=== PATIENT | female | born 1970 | race Caucasian/White ===

== ENCOUNTER 2017-12-04 20:04 | Emergency (ER) | payer OTHER ==
[~2017-12-04] VITALS: Ht 162.6 cm; Wt 117.9 kg
[~2017-12-04 20:04] MED LIST: ACET325 PO; ALBIPROI; ALBU90OI INH; ALBU90OI6 INH; ALPR.25 PO; AMIT10 PO; AMIT25 PO; AMOX500 PO; ARIP10 PO; AZIT250 PO; BENZ100A PO; BIRTH CONTROL PILLS; BUDE6HFA; BUPR75; BUSP15 PO; CEPH500 PO; CIPR500 PO; CYCL10; CYCL10 PO; Cleocin HCl150 MG PO; DOXY100 PO; Desyrel150 MG PO; ETOD400 PO; FLUSAL2505; FLUT.05NI; GABA100 PO; GABA300 PO; GABA800 PO; HYDHCL25; HYDSUL200 PO; IBUP800 PO; IMIP10 PO; K-Dur20 MEQ PO; LACT10SY PO; LEVO750 PO; LEVSOD112 PO; LEVSOD125; LEVSOD125 PO; LEVSOD175 PO; LISHYD1012 PO; LORA.5 PO; LORA2 PO; Lasix20 MG PO; MAGCIT300 PO; MECL12.5 PO; MECL25 PO; METF500; METF500 PO; METF850; METH5 PO; MINOIL PR; Mobic15 MG PO; NAPR500 PO; OXYACE5C; OXYACE5T PO; OXYC10ER PO; PRED20 PO; PROM25 PO; PROM25S PR; Percocet 5-3251 EACH PO; Prednisone20 MG PO; Prilosec20 MG PO; SERT100 PO; SERT25 PO; SULTRIDS PO; TIOT18; TRAM50 PO; WELBUTRIN; Zithromax250 MG PO; [UNRECOGNIZED DRUG - REMARK]
[2018-06-16] MEDS ORDERED: Cipro500 MG PO (20:52)
[2018-06-16] MEDS ORDERED: Zofran Odt4 MG PO (20:52)
[2018-09-19] MEDS ORDERED: HYDHCL25 PO (19:51)
== END 2017-12-04 22:19 | disposition home or self-care (01) ==
LOC: ER 20:04
DX: G89.29 Other chronic pain (principal); M54.5 Low back pain; Z88.5 Allergy status to narcotic agent; Z79.899 Other long term (current) drug therapy; F32.9 Major depressive disorder, single episode, unspecified; E03.9 Hypothyroidism, unspecified; J44.9 Chronic obstructive pulmonary disease, unspecified; F17.210 Nicotine dependence, cigarettes, uncomplicated
CPT/HCPCS: 96372; 99283; J1170; J1885

== ENCOUNTER 2018-06-08 21:37 | Emergency (ER) | payer OTHER ==
[~2018-06-08] VITALS: Ht 162.6 cm; Wt 113.4 kg
[2018-06-08 22:03] LABS: Source, Urine Clean Catch
[2018-06-08] MEDS ORDERED: OXYC10TA19 (22:04)
[2018-06-08] MEDS ORDERED: VARE1 PO (22:05)
[2018-06-08] MEDS ORDERED: BUSP10 PO (22:05)
[2018-06-08] MEDS ORDERED: DULO60 (22:06)
[2018-06-08] MEDS ORDERED: ALPR.5 PO (22:07)
[2018-06-08] MEDS ORDERED: PLAQUENIL200 MG PO (22:07)
[2018-06-08] MEDS ORDERED: CYCL10 PO (22:08)
[2018-06-08 22:16] LABS: Appearance, Urine Hazy (Clear); Bilirubin, Urine Neg (Neg); Blood, Urine 3+ (Neg); Color, Urine Yellow (P-Yellow); Glucose Qualitative, Urine Neg (Neg); Ketones, Urine Neg (Neg); Leukocyte Esterase, Urine 1+ (Neg); Nitrite, Urine Pos (Neg); Protein, Urine 2+ (Neg); Urobilinogen, Urine 1+ (Normal); pH, Urine 6.5 (5.0-8.0)
[2018-06-08 22:27] LABS: Bacteria Many /hpf; Squamous Epithelial Cells Few /hpf (Few)
[2018-06-08] MEDS ORDERED: IBUP600 PO (22:55)
[2018-06-08] MEDS ORDERED: CEPH500 PO (22:55)
== END 2018-06-08 23:54 | disposition home or self-care (01) ==
LOC: ER 21:37
PROVIDERS: Emergency Medicine
DX: N12 Tubulo-interstitial nephritis, not specified as acute or chronic (principal); F32.9 Major depressive disorder, single episode, unspecified; E03.9 Hypothyroidism, unspecified; F17.210 Nicotine dependence, cigarettes, uncomplicated; Z79.899 Other long term (current) drug therapy
CPT/HCPCS: 81001; 87077; 87086; 87186; 96361; 96374; 99283-25; J0696; J1885; J7030

== ENCOUNTER 2018-06-15 18:28 | Emergency (ER) | payer OTHER ==
[~2018-06-15] VITALS: Ht 162.6 cm; Wt 113.4 kg
[~2018-06-15 18:28] MED LIST changes: +ALPR.5 PO; +BUSP10 PO; +DULO60; +IBUP600 PO; +OXYC10TA19; +PLAQUENIL200 MG PO; +VARE1 PO
[2018-06-15 20:00] LABS: BASOPHILS ABSOLUTE AUTO 0.06 K/mm3 (0.00-0.23); BASOPHILS PERCENT AUTO 1 % (0-2); EOSINOPHILS ABSOLUTE AUTO 0.27 K/mm3 (0.00-0.68); EOSINOPHILS PERCENT AUTO 3 % (0-6); Hematocrit 41.6 % (33.0-51.0); Hemoglobin 13.5 g/dL (11.5-16.0); IMMATURE GRAN ABSOLUTE AUTO 0.04 K/mm3 (0.00-0.10); IMMATURE GRAN PERCENT AUTO 0 % (0-1); LYMPHOCYTES PERCENT AUTO 21 % (21-46); MONOCYTES ABSOLUTE AUTO 0.78 K/mm3 (0.16-1.47); MONOCYTES PERCENT AUTO 7 % (4-13); Mean Corpuscular HGB 30.3 pg (26.0-34.0); Mean Corpuscular HGB Conc 32.5 g/dL (31.5-36.5); Mean Corpuscular Volume 93 fL (80-100); NEUTROPHILS ABSOLUTE AUTO 7.38 K/mm3 (1.96-9.15); NEUTROPHILS PERCENT AUTO 69 % (41-73); Platelet Count 383 K/mm3 (150-400); RDW Coefficient Variation 15.3 % (11.7-14.2); RDW Standard Deviation 53.1 fL (35.1-46.3); Red Blood Cell Count 4.46 M/mm3 (3.80-5.20); White Blood Cell Count 10.73 K/mm3 (4.00-11.30)
[2018-06-15 20:21] LABS: Alanine Aminotransfer (ALT/SGP 31 U/L (12-78); Albumin, Blood 3.8 g/dL (3.4-5.0); Albumin/Globulin Ratio 0.8 (0.8-1.8); Alk Phos 73 U/L (50-136); Anion Gap 7 mmol/L (6-16); Aspartate Aminotrans (AST/SGOT 35 U/L (12-37); Bilirubin, Total 0.6 mg/dL (0.1-1.0); Blood Urea Nitrogen 11 mg/dL (8-24); Bun/Creatinine Ratio 23.1 (12.0-20.0); CO2, Blood 25 mmol/L (21-32); Calcium, Blood 8.6 mg/dL (8.5-10.1); Chloride, Blood 106 mmol/L (98-108); Creatinine, Blood 0.48 mg/dL (0.40-1.00); Globulin, Blood 4.5 g/dL (2.2-4.0); Glomerular Filtration Rate >60 (60-); Glucose, Blood 85 mg/dL (70-99); Potassium, Blood 4.5 mmol/L (3.5-5.5); Sodium, Blood 138 mmol/L (136-145); Total Protein, Blood 8.3 g/dL (6.4-8.2)
[2018-06-16] MEDS ORDERED: Zofran Odt4 MG PO (20:52)
[2018-06-16] MEDS ORDERED: Cipro500 MG PO (20:52)
== END 2018-06-15 20:54 | disposition left against medical advice (07) ==
LOC: ER 18:28
PROVIDERS: Emergency Medicine
DX: Z53.21 Procedure and treatment not carried out due to patient leaving prior to being seen by health care provider (principal)
CPT/HCPCS: 36415; 80053; 83690; 85025

== ENCOUNTER 2019-10-22 23:21 | Emergency (ER) | payer BC ==
[~2019-10-22] VITALS: Ht 162.6 cm; Wt 133.8 kg
[~2019-10-22 23:21] MED LIST changes: +Cipro500 MG PO; +HYDHCL25 PO; +Zofran Odt4 MG PO
[2019-10-22] MEDS ORDERED: DICL75ER PO (23:37)
[2019-10-22] MEDS ORDERED: HYDSUL200 (23:38)
[2019-10-22] MEDS ORDERED: BUSP10 PO (23:38)
[2019-10-22] MEDS ORDERED: BUPR150ER (23:38)
[2019-10-22] MEDS ORDERED: METF500 PO (23:38)
[2019-10-23] MEDS ORDERED: CEFP200 PO (00:42)
== END 2019-10-23 00:50 | disposition home or self-care (01) ==
LOC: ER 23:21
DX: S61.212A Laceration without foreign body of right middle finger without damage to nail, initial encounter (principal); E03.9 Hypothyroidism, unspecified; F17.210 Nicotine dependence, cigarettes, uncomplicated; Z88.8 Allergy status to other drugs, medicaments and biological substances; Z88.5 Allergy status to narcotic agent; Z79.899 Other long term (current) drug therapy; Z79.84 Long term (current) use of oral hypoglycemic drugs; Z79.51 Long term (current) use of inhaled steroids; X58.XXXA Exposure to other specified factors, initial encounter
CPT/HCPCS: 99282; A9270-GY

== ENCOUNTER 2020-08-25 12:08 | Emergency (ER) | payer BC ==
[~2020-08-25] VITALS: Ht 162.6 cm; Wt 127.0 kg
[~2020-08-25 12:08] MED LIST changes: +BUPR150ER; +CEFP200 PO; +DICL75ER PO; +HYDSUL200
[2020-08-25 12:48] LABS: BASOPHILS ABSOLUTE AUTO 0.07 K/mm3 (0.00-0.23); BASOPHILS PERCENT AUTO 1 % (0-2); EOSINOPHILS ABSOLUTE AUTO 0.25 K/mm3 (0.00-0.68); EOSINOPHILS PERCENT AUTO 3 % (0-6); Hematocrit 42.1 % (33.0-51.0); Hemoglobin 12.8 g/dL (11.5-16.0); IMMATURE GRAN ABSOLUTE AUTO 0.09 K/mm3 (0.00-0.10); IMMATURE GRAN PERCENT AUTO 1 % (0-1); LYMPHOCYTES PERCENT AUTO 14 % (21-46); MONOCYTES ABSOLUTE AUTO 0.63 K/mm3 (0.16-1.47); MONOCYTES PERCENT AUTO 7 % (4-13); Mean Corpuscular HGB 28.4 pg (26.0-34.0); Mean Corpuscular HGB Conc 30.4 g/dL (31.5-36.5); Mean Corpuscular Volume 94 fL (80-100); Mean Platelet Volume 9.8 fL (9.1-12.4); NEUTROPHILS ABSOLUTE AUTO 7.05 K/mm3 (1.96-9.15); NEUTROPHILS PERCENT AUTO 75 % (41-73); Platelet Count 388 K/mm3 (150-400); RDW Coefficient Variation 13.4 % (11.7-14.2); RDW Standard Deviation 46.8 fL (35.1-46.3); White Blood Cell Count 9.39 K/mm3 (4.00-11.30)
[2020-08-25 13:14] LABS: Alanine Aminotransfer (ALT/SGP 28 U/L (12-78); Albumin, Blood 3.9 g/dL (3.4-5.0); Alk Phos 78 U/L (50-136); Anion Gap 7 mmol/L (6-16); Aspartate Aminotrans (AST/SGOT 25 U/L (12-37); Bilirubin, Total 0.5 mg/dL (0.1-1.0); Blood Urea Nitrogen 14 mg/dL (8-24); Bun/Creatinine Ratio 20.7 (12.0-20.0); CO2, Blood 24 mmol/L (21-32); Calcium, Blood 9.1 mg/dL (8.5-10.1); Chloride, Blood 107 mmol/L (98-108); Creatinine, Blood 0.68 mg/dL (0.40-1.00); Globulin, Blood 4.1 g/dL (2.2-4.0); Glomerular Filtration Rate >60 (60-); Glucose, Blood 88 mg/dL (70-99); Potassium, Blood 4.5 mmol/L (3.5-5.5); Sodium, Blood 138 mmol/L (136-145); Troponin I <0.015 ng/mL (0.000-0.040)
[2020-08-25] MEDS ORDERED: Prednisone20 MG PO (16:05)
[2020-08-27 15:25] LABS: CORONAVIRUS (COVID19) CSH-NRL Negative (Negative)
== END 2020-08-25 16:25 | disposition home or self-care (01) ==
LOC: ER 12:08
PROVIDERS: Emergency Medicine; Physician Assistant
DX: J06.9 Acute upper respiratory infection, unspecified (principal); R07.89 Other chest pain; Z79.84 Long term (current) use of oral hypoglycemic drugs; Z20.828 Contact with and (suspected) exposure to other viral communicable diseases; Z79.899 Other long term (current) drug therapy
CPT/HCPCS: 36415; 71045; 80053; 84484; 85025; 93005; 93010; 99285-25; U0003

== ENCOUNTER 2021-06-04 13:25 | Emergency (ER) | payer BC ==
[~2021-06-04] VITALS: Ht 162.6 cm; Wt 127.0 kg
[2021-06-04 14:09] LABS: BASOPHILS ABSOLUTE AUTO 0.07 K/mm3 (0.00-0.23); BASOPHILS PERCENT AUTO 1 % (0-2); EOSINOPHILS ABSOLUTE AUTO 0.23 K/mm3 (0.00-0.68); EOSINOPHILS PERCENT AUTO 2 % (0-6); Hematocrit 36.6 % (33.0-51.0); Hemoglobin 10.8 g/dL (11.5-16.0); IMMATURE GRAN ABSOLUTE AUTO 0.03 K/mm3 (0.00-0.10); IMMATURE GRAN PERCENT AUTO 0 % (0-1); LYMPHOCYTES ABSOLUTE AUTO 1.48 K/mm3 (0.84-5.20); LYMPHOCYTES PERCENT AUTO 15 % (21-46); MONOCYTES ABSOLUTE AUTO 0.82 K/mm3 (0.16-1.47); MONOCYTES PERCENT AUTO 9 % (4-13); Mean Corpuscular HGB 24.3 pg (26.0-34.0); Mean Corpuscular HGB Conc 29.5 g/dL (31.5-36.5); Mean Corpuscular Volume 82 fL (80-100); Mean Platelet Volume 9.3 fL (9.1-12.4); NEUTROPHILS ABSOLUTE AUTO 7.02 K/mm3 (1.96-9.15); NEUTROPHILS PERCENT AUTO 73 % (41-73); Platelet Count 504 K/mm3 (150-400); RDW Coefficient Variation 15.9 % (11.7-14.2); RDW Standard Deviation 47.1 fL (35.1-46.3); Red Blood Cell Count 4.45 M/mm3 (3.80-5.20); White Blood Cell Count 9.65 K/mm3 (4.00-11.30)
[2021-06-04 14:32] LABS: Alanine Aminotransfer (ALT/SGP 46 U/L (12-78); Alk Phos 74 U/L (50-136); Anion Gap 7 mmol/L (6-16); Aspartate Aminotrans (AST/SGOT 29 U/L (12-37); Bilirubin, Total 0.3 mg/dL (0.1-1.0); Blood Urea Nitrogen 13 mg/dL (8-24); Bun/Creatinine Ratio 16.1 (12.0-20.0); CO2, Blood 21 mmol/L (21-32); Calcium, Blood 8.7 mg/dL (8.5-10.1); Chloride, Blood 110 mmol/L (98-108); Creatinine, Blood 0.81 mg/dL (0.40-1.00); Globulin, Blood 4.2 g/dL (2.2-4.0); Glomerular Filtration Rate >60 (60-); Glucose, Blood 97 mg/dL (70-99); Potassium, Blood 4.1 mmol/L (3.5-5.5); Sodium, Blood 138 mmol/L (136-145); Total Protein, Blood 8.2 g/dL (6.4-8.2); Troponin I <0.015 ng/mL (0.000-0.040)
== END 2021-06-04 15:34 | disposition home or self-care (01) ==
LOC: ER 13:25
PROVIDERS: Physician Assistant
DX: I10 Essential (primary) hypertension (principal); R07.89 Other chest pain; F17.290 Nicotine dependence, other tobacco product, uncomplicated; E03.9 Hypothyroidism, unspecified; Z88.8 Allergy status to other drugs, medicaments and biological substances; Z88.5 Allergy status to narcotic agent
CPT/HCPCS: 0031A; 36415; 71046; 80053; 83690; 83880; 84484; 85025; 91303; 93005; 93010; 99284-25

== ENCOUNTER → 2021-08-24 | Outpatient (CLI) | payer BC ==
[2021-08-25 09:04] LABS: U Amphetamine Screen Not Detected; U Barbituate Screen Not Detected; U Benzodiazapine Screen Not Detected; U Buprenorphine Screen Not Detected; U Cannabinoids Screen Not Detected; U Cocaine Screen Not Detected; U Methadone Screen Not Detected; U Methamphetamine Screen Not Detected; U Opiates Screen Not Detected; U Oxycodone Screen Not Detected; U Phencyclidine Screen Not Detected; U Propoxyphene Screen Not Detected
== END | disposition home or self-care (01) ==
LOC: LAB SHORT 17:15
PROVIDERS: Family Medicine
DX: M51.9 Unspecified thoracic, thoracolumbar and lumbosacral intervertebral disc disorder (principal)

== ENCOUNTER 2022-01-26 14:18 | Emergency (ER) | payer BC ==
[~2022-01-26] VITALS: Ht 162.6 cm; Wt 126.1 kg
[2022-01-26 14:54] LABS: BASOPHILS ABSOLUTE AUTO 0.08 K/mm3 (0.00-0.23); BASOPHILS PERCENT AUTO 1 % (0-2); EOSINOPHILS ABSOLUTE AUTO 0.05 K/mm3 (0.00-0.68); EOSINOPHILS PERCENT AUTO 0 % (0-6); Hematocrit 33.2 % (33.0-51.0); Hemoglobin 9.6 g/dL (11.5-16.0); IMMATURE GRAN ABSOLUTE AUTO 0.04 K/mm3 (0.00-0.10); IMMATURE GRAN PERCENT AUTO 0 % (0-1); LYMPHOCYTES ABSOLUTE AUTO 0.93 K/mm3 (0.84-5.20); LYMPHOCYTES PERCENT AUTO 8 % (21-46); MONOCYTES ABSOLUTE AUTO 0.61 K/mm3 (0.16-1.47); MONOCYTES PERCENT AUTO 5 % (4-13); Mean Corpuscular HGB 21.8 pg (26.0-34.0); Mean Corpuscular HGB Conc 28.9 g/dL (31.5-36.5); Mean Corpuscular Volume 75 fL (80-100); Mean Platelet Volume 9.5 fL (9.1-12.4); NEUTROPHILS ABSOLUTE AUTO 10.19 K/mm3 (1.96-9.15); NEUTROPHILS PERCENT AUTO 86 % (41-73); Platelet Count 622 K/mm3 (150-400); RDW Standard Deviation 43.7 fL (35.1-46.3); Red Blood Cell Count 4.41 M/mm3 (3.80-5.20)
[2022-01-26 15:22] LABS: Alanine Aminotransfer (ALT/SGP 24 U/L (12-78); Albumin, Blood 4.2 g/dL (3.4-5.0); Albumin/Globulin Ratio 0.9 (0.8-1.8); Alk Phos 89 U/L (50-136); Anion Gap 11 mmol/L (6-16); Aspartate Aminotrans (AST/SGOT 30 U/L (12-37); Bilirubin, Total 0.7 mg/dL (0.1-1.0); Blood Urea Nitrogen 7 mg/dL (8-24); Bun/Creatinine Ratio 10.4 (12.0-20.0); CO2, Blood 23 mmol/L (21-32); Calcium, Blood 9.9 mg/dL (8.5-10.1); Chloride, Blood 105 mmol/L (98-108); Creatinine, Blood 0.67 mg/dL (0.40-1.00); Globulin, Blood 4.6 g/dL (2.2-4.0); Glomerular Filtration Rate >60 (60-); Glucose, Blood 108 mg/dL (70-99); Potassium, Blood 3.5 mmol/L (3.5-5.5); Sodium, Blood 139 mmol/L (136-145); Total Protein, Blood 8.8 g/dL (6.4-8.2)
[2022-01-26 17:56] LABS: Source, Urine Clean Catch
[2022-01-26 17:59] LABS: Appearance, Urine Clear (Clear); Bilirubin, Urine Neg (Neg); Blood, Urine Neg (Neg); Color, Urine Yellow (P-Yellow); Glucose Qualitative, Urine Neg (Neg); Ketones, Urine 2+ (Neg); Leukocyte Esterase, Urine Neg (Neg); Nitrite, Urine Neg (Neg); Protein, Urine 3+ (Neg); Specific Gravity, Urine 1.015 (1.003-1.022); Urobilinogen, Urine NORM (Normal)
[2022-01-26 18:08] LABS: Bacteria Rare /hpf; Red Blood Cells, Urine 0-2 /hpf (0-2); Squamous Epithelial Cells Rare /hpf (Few); White Blood Cells, Urine 0-2 /hpf (0-5)
[2022-01-26] MEDS ORDERED: PANT40 PO (18:13)
[2022-01-26] MEDS ORDERED: CARAFATE1 GM/10 M1 PO (18:13)
== END 2022-01-26 18:33 | disposition home or self-care (01) ==
LOC: ER 14:18
PROVIDERS: Physician Assistant
DX: R11.2 Nausea with vomiting, unspecified (principal); R10.13 Epigastric pain; E03.9 Hypothyroidism, unspecified; Z87.891 Personal history of nicotine dependence; Z88.5 Allergy status to narcotic agent
CPT/HCPCS: 74177; 80053; 81001; 83690; 85025; 96374; 96375; 96376; 99284-25; A9270; C9113; J0780; J1885; J2405; J3010; Q9967

== ENCOUNTER 2022-08-27 21:25 | Emergency (ER) | payer BC ==
[~2022-08-27] VITALS: Ht 162.6 cm; Wt 117.9 kg
[~2022-08-27 21:25] MED LIST changes: +CARAFATE1 GM/10 M1 PO; +PANT40 PO
[2022-08-27] MEDS ORDERED: LISI20 PO (22:54)
[2022-08-27] MEDS ORDERED: Hydroxychloroq200 MG PO (22:54)
[2022-08-27] MEDS ORDERED: HYDHCL25 (22:55)
[2022-08-27] MEDS ORDERED: Neurontin800 MG PO (22:55)
[2022-08-27] MEDS ORDERED: BUSPIRONE HCL10 M6 PO (22:55)
[2022-08-27] MEDS ORDERED: TIZA4 PO (22:56)
[2022-08-27] MEDS ORDERED: HYDCHL25 PO (22:57)
[2022-08-27] MEDS ORDERED: VENLAFAXINE HC225 MG PO (22:57)
[2022-08-27] MEDS ORDERED: SEROQUEL100 MG PO (22:58)
[2022-08-27] MEDS ORDERED: IBUP800 PO (22:59)
== END 2022-08-27 23:30 | disposition home or self-care (01) ==
LOC: ER 21:25
DX: S82.61XA Displaced fracture of lateral malleolus of right fibula, initial encounter for closed fracture (principal); E11.9 Type 2 diabetes mellitus without complications; F17.290 Nicotine dependence, other tobacco product, uncomplicated; W19.XXXA Unspecified fall, initial encounter; Z88.5 Allergy status to narcotic agent; Z88.8 Allergy status to other drugs, medicaments and biological substances
CPT/HCPCS: 73610; 73620

== ENCOUNTER 2022-09-13 11:50 | Day surgery (SDC) | payer BC ==
[~2022-09-13] VITALS: Ht 162.6 cm; Wt 125.4 kg
[~2022-09-13 11:50] MED LIST changes: +BUSPIRONE HCL10 M6 PO; +HYDCHL25 PO; +Hydroxychloroq200 MG PO; +LISI20 PO; +Neurontin800 MG PO; +SEROQUEL100 MG PO; +TIZA4 PO; +VENLAFAXINE HC225 MG PO
[2022-09-13] MEDS ORDERED: Voltaren100 GM (13:01)
[2022-09-13] MEDS ORDERED: METF500 PO (14:33)
[2022-09-13] MEDS ORDERED: ALBU90OI INH (14:35)
--- NOTE | 2022-09-13 15:58 | NUR ---
09/13/22 1558 Kenya Mccurdy PT ON SCHEDULED ANTIBIOTICS
--- NOTE | 2022-09-13 17:49 | NUR ---
Discharge instructions reviewed with patient. Patient verbalizes understanding. Copy given to patient to take home. Discharged via wheelchair to private car for ride home.
== END 2022-09-13 18:03 | disposition home or self-care (01) ==
LOC: ORSCMMR 11:50 → ORD 13:30 → ORSCMMR 18:03
PROVIDERS: Orthopaedic Surgery
PROC: 0QSJ04Z Reposition Right Fibula with Internal Fixation Device, Open Approach (ICD-10-PCS; principal; 2022-09-13 14:00)
DX: S82.841A Displaced bimalleolar fracture of right lower leg, initial encounter for closed fracture (principal); I10 Essential (primary) hypertension; F17.210 Nicotine dependence, cigarettes, uncomplicated; J45.909 Unspecified asthma, uncomplicated; E11.9 Type 2 diabetes mellitus without complications; E03.9 Hypothyroidism, unspecified; E66.01 Morbid (severe) obesity due to excess calories; Z68.42 Body mass index [BMI] 45.0-49.9, adult; Z79.84 Long term (current) use of oral hypoglycemic drugs; Z79.899 Other long term (current) drug therapy
CPT/HCPCS: 82947; A9270; C1713; J0690; J1100; J2250; J2370; J2405; J2704; J3010; J3370; J7120

== ENCOUNTER 2022-09-17 01:56 | Inpatient (IN) | payer BC ==
[~2022-09-17] VITALS: Ht 167.6 cm; Wt 131.0 kg
[~2022-09-17 01:56] MED LIST changes: +EFFEXOR XR150 MG PO; -Neurontin800 MG PO; -VENLAFAXINE HC225 MG PO; +Voltaren100 GM TOP
[2022-09-17 02:45] LABS: Alanine Aminotransfer (ALT/SGP 37 U/L (12-78); Albumin, Blood 2.8 g/dL (3.4-5.0); Albumin/Globulin Ratio 0.7 (0.8-1.8); Alk Phos 76 U/L (50-136); Anion Gap 9 mmol/L (6-16); Aspartate Aminotrans (AST/SGOT 248 U/L (12-37); Bilirubin, Total 0.2 mg/dL (0.1-1.0); Blood Urea Nitrogen 43 mg/dL (8-24); Bun/Creatinine Ratio 24.6 (12.0-20.0); CO2, Blood 24 mmol/L (21-32); Calcium, Blood 7.9 mg/dL (8.5-10.1); Chloride, Blood 105 mmol/L (98-108); Creatinine, Blood 1.75 mg/dL (0.40-1.00); Ethanol (Alcohol), Blood, Med <3 mg/dL; Free Thyroxine 1.95 ng/dL (0.70-1.60); Globulin, Blood 4.1 g/dL (2.2-4.0); Glomerular Filtration Rate 35 (60-); Glucose, Blood 138 mg/dL (70-99); Potassium, Blood 4.9 mmol/L (3.5-5.5); Sodium, Blood 138 mmol/L (136-145); Thyroid Stimulating Hormone 0.344 uIU/mL (0.360-4.800); Total Protein, Blood 6.9 g/dL (6.4-8.2)
[2022-09-17 02:48] LABS: BASOPHILS ABSOLUTE AUTO 0.04 K/mm3 (0.00-0.23); BASOPHILS PERCENT AUTO 0 % (0-2); EOSINOPHILS ABSOLUTE AUTO 0.13 K/mm3 (0.00-0.68); EOSINOPHILS PERCENT AUTO 1 % (0-6); Hematocrit 28.6 % (33.0-51.0); Hemoglobin 8.3 g/dL (11.5-16.0); IMMATURE GRAN ABSOLUTE AUTO 0.11 K/mm3 (0.00-0.10); IMMATURE GRAN PERCENT AUTO 1 % (0-1); LYMPHOCYTES ABSOLUTE AUTO 1.33 K/mm3 (0.84-5.20); LYMPHOCYTES PERCENT AUTO 9 % (21-46); MONOCYTES ABSOLUTE AUTO 1.41 K/mm3 (0.16-1.47); MONOCYTES PERCENT AUTO 10 % (4-13); Mean Corpuscular HGB 24.1 pg (26.0-34.0); Mean Corpuscular Volume 83 fL (80-100); Mean Platelet Volume 8.9 fL (9.1-12.4); NEUTROPHILS ABSOLUTE AUTO 11.26 K/mm3 (1.96-9.15); NEUTROPHILS PERCENT AUTO 79 % (41-73); Platelet Count 438 K/mm3 (150-400); RDW Coefficient Variation 15.2 % (11.7-14.2); RDW Standard Deviation 46.5 fL (35.1-46.3); Red Blood Cell Count 3.45 M/mm3 (3.80-5.20); White Blood Cell Count 14.28 K/mm3 (4.00-11.30)
[2022-09-17 04:27] LABS: Source, Urine Fem Cath
[2022-09-17 04:30] LABS: Bilirubin, Urine Neg (Neg); Blood, Urine 5+ (Neg); Glucose Qualitative, Urine Neg (Neg); Ketones, Urine Neg (Neg); Leukocyte Esterase, Urine Neg (Neg); Nitrite, Urine Neg (Neg); Protein, Urine 2+ (Neg); Urobilinogen, Urine NORM (Normal)
[2022-09-17 05:11] LABS: U Amphetamine Screen Not Detected; U Barbituate Screen Not Detected; U Benzodiazapine Screen Not Detected; U Buprenorphine Screen Not Detected; U Cannabinoids Screen Not Detected; U Cocaine Screen Not Detected; U Methadone Screen Not Detected; U Methamphetamine Screen Not Detected; U Opiates Screen Not Detected; U Oxycodone Screen DETECTED; U Phencyclidine Screen Not Detected; U Propoxyphene Screen Not Detected
[2022-09-17 05:19] LABS: Appearance, Urine Hazy (Clear); Color, Urine Yellow (P-Yellow)
[2022-09-17 05:21] LABS: Amorphous Light (0-Heavy); Bacteria Few /hpf; Hyaline Casts 0-2 /lpf (0-2); Red Blood Cells, Urine 0-2 /hpf (0-2); Squamous Epithelial Cells Few /hpf (Few); White Blood Cells, Urine 0-2 /hpf (0-5)
[2022-09-17] MEDS ORDERED: EUTHYROX125 MCG PO (09:45)
--- NOTE | 2022-09-17 10:34 | NUR ---
ADMIT PT ARRIVED TO ICU 15 VIA ER BED AT 0945. PT IS SOMNOLENT, BUT AROUSABLE TO VERBAL STIMULI. PT QUICKLY FALLS BACK TO SLEEP. VITAL SIGNS STABLE. PT ON 2L O2 NC. PT WITH SOFT CAST TO RIGHT LOWER EXTREMITY. PT IS RESTLESS AND COMPLAINS OF PAIN TRYING TO VOID AT THIS TIME. PT JUST VOIDED WITH BEDPAN RECENTLY. NO FAMILY AT BEDSIDE. WILL CONTINUE TO MONITOR.
[2022-09-17 13:19] LABS: Source, Urine Foley catheter
[2022-09-17 13:28] LABS: Bilirubin, Urine Neg (Neg); Blood, Urine 5+ (Neg); Color, Urine Yellow (P-Yellow); Glucose Qualitative, Urine Neg (Neg); Ketones, Urine Neg (Neg); Leukocyte Esterase, Urine Neg (Neg); Nitrite, Urine Neg (Neg); Protein, Urine 2+ (Neg); Urobilinogen, Urine NORM (Normal)
[2022-09-17 14:16] LABS: Appearance, Urine Hazy (Clear)
[2022-09-17 14:17] LABS: Amorphous Light (0-Heavy); Bacteria Many /hpf; Mucus Light (0-Heavy); Red Blood Cells, Urine 0-2 /hpf (0-2); Squamous Epithelial Cells Rare /hpf (Few); White Blood Cells, Urine 0-2 /hpf (0-5)
--- NOTE | 2022-09-17 17:31 | NUR ---
SHIFT SUMMARY NO ACUTE CHANGES THIS SHIFT. PT MORE ALERT THIS EVENING, BUT CONTINUES TO THRASH AROUND IN BED AND MOAN OUT. PT IS NONSPECIFIC ABOUT COMPLAINTS OF DISCOMFORT. PT IS ABLE TO ANSWER SOME QUESTIONS APPROPRIATELY, BUT NEEDS REDIRECTION AT TIMES. VITAL SIGNS HAVE REMAINED STABLE. PT OFF AND ON 2L O2 NC WHILE PT SLEEPING. NS INFUSING AT 75 ML/HR. ALVARENGA PLACED THIS SHIFT WITH LARGE AMOUNT OF DARK YELLOW URINE OUTPUT NOTED THIS SHIFT. PT WITH SMALL AMOUNT OF VAGINAL BLEEDING NOTED. SOFT CAST TO RIGHT LOWER EXTREMITY REMAINS C/D/I. WILL CONTINUE TO MONITOR AND REPORT OFF TO ONCOMING RN.
[2022-09-18 03:51] LABS: BASOPHILS ABSOLUTE AUTO 0.04 K/mm3 (0.00-0.23); BASOPHILS PERCENT AUTO 1 % (0-2); EOSINOPHILS ABSOLUTE AUTO 0.17 K/mm3 (0.00-0.68); EOSINOPHILS PERCENT AUTO 2 % (0-6); Hematocrit 24.1 % (33.0-51.0); IMMATURE GRAN ABSOLUTE AUTO 0.06 K/mm3 (0.00-0.10); IMMATURE GRAN PERCENT AUTO 1 % (0-1); LYMPHOCYTES ABSOLUTE AUTO 1.25 K/mm3 (0.84-5.20); LYMPHOCYTES PERCENT AUTO 16 % (21-46); MONOCYTES ABSOLUTE AUTO 0.82 K/mm3 (0.16-1.47); MONOCYTES PERCENT AUTO 10 % (4-13); Mean Corpuscular HGB 24.1 pg (26.0-34.0); Mean Corpuscular Volume 83 fL (80-100); Mean Platelet Volume 9.2 fL (9.1-12.4); NEUTROPHILS ABSOLUTE AUTO 5.54 K/mm3 (1.96-9.15); NEUTROPHILS PERCENT AUTO 70 % (41-73); Platelet Count 328 K/mm3 (150-400); RDW Coefficient Variation 15.2 % (11.7-14.2); White Blood Cell Count 7.88 K/mm3 (4.00-11.30)
[2022-09-18 04:18] LABS: Albumin, Blood 2.5 g/dL (3.4-5.0); Albumin/Globulin Ratio 0.7 (0.8-1.8); Bilirubin, Total 0.3 mg/dL (0.1-1.0); Bun/Creatinine Ratio 26.3 (12.0-20.0); Calcium, Blood 8.6 mg/dL (8.5-10.1); Creatinine, Blood 0.8 mg/dL (0.40-1.00); Globulin, Blood 3.8 g/dL (2.2-4.0); Potassium, Blood 4.5 mmol/L (3.5-5.5); Total Protein, Blood 6.3 g/dL (6.4-8.2)
--- NOTE | 2022-09-18 04:48 | NUR ---
PT. HAS REMAINED STABLE OVERNIGHT, ALTHOUGH ALL NIGHT HAS BEEN COMPLAINING OF PAIN. PRN TYLENOL, XANAFLEX, AND ATIVAN WERE GIVEN BUT EVERYTIME PT. WAKES UP SHE YELLS OUT IN PAIN. PT. WAS REPOSITIONED SEVERAL TIMES AND ALLOWED INTO RECLINER, AND IT DID NOT SEEM TO HELP. PT. IS ON RA AND SATTING WELL. PT. IS ALERT AND ORIENTED AND HAS A ALVARENGA DRAINING TO GRAVITY. PT. IS RESTING IN BED WITH CALL LIGHT IN REACH AT THIS TIME.
--- NOTE | 2022-09-18 07:00 | NUR ---
ASSUME CARE: I have assumed care of this patient.
[2022-09-18 12:00] LABS: Hematocrit 25.2 % (33.0-51.0); Hemoglobin 7.3 g/dL (11.5-16.0)
--- NOTE | 2022-09-18 12:35 | NUR ---
TRANSFER: pt to PCU after report given to RN. she was taken over in wheelchair by fnps.
--- NOTE | 2022-09-18 18:05 | NUR ---
PT SUMMARY: PT TRANSFERRED FROM ICU 15 TO PCU 08 REPORT RECEIVED FROM MARIA TERESA GARCIA. PT HAS BEEN C/O LEFT LEG PAIN WHICH IS THE UNAFFECTED, PT HAS RIGHT ANKLE SPLINT/SOFT CAST ON WHICH IS RECOMMENDED TO BE NON WEIGHT BEARING PER PHYSICA THERAPIST. PT WAS EXPLAINED THAT NO NRCOTICS ARE ORDERED FOR NOW AND PT WAS AGREEABLE WITH TYLENOL AND ZANAFLEX, ICE COOLING PACK WAS ALSO OFFERED AND USE, PT THEN C/O THAT THE PAIN IS MORE OF NUMBNESS AND TINGLING BUT WHEN PAIN STIMULUS WAS TESTED ON LEFT LEG PT WAS ABLE TO FEEL ON BOTH FEET WITH BOTH GOOD CIRCULATION, THEN BEFORE THE END OF THE SHIFT THE PAIN WENT UP ON THE UPPER LEFT HIP THIS TIME AND ASKED FOR PAIN MEDS WHEN THIS RN WENT AND CHECK ON THE PT, PT WAS ASLEEP SNORING IN BED. PT WAS A LITTLE FORGETFUL SOMETIMES CANT FOCUS TO FOLLOW INSTRUCTIONS, PT WAS INSTRUCTED MULTIPLE TIMES TO NOT BEAR WEIGHT ON RIGHT LEG PT DOESNT SEEM TO COMPREHEND THEN WHEN SHE FEELS THE PAIN THEN SHE REALIZES NOT TO USE THE AFFECTED LEG. PT USES WALKER FOR TRANSFERS WAS UP IN THE CHAIR AND RECLINER TWICE FOR THE SHIFT. NO OTHER ISSUES ENCOUNTERED. VITALS STABLE. WILL REPORT TO ONCOMING SHIFT
--- NOTE | 2022-09-19 00:17 | NUR ---
CARE ASSUMPTION: PATIENT SYS BP 164 AND TACHYCARDIC, AFEBRILE. PATIENT REPORTS PAIN IN LEFT LEG 8/. BECAME ANXIOUS AND DEMANDING PAIN MEDICATION. EDUCATED ON WHEN PAIN MEDS WOULD BE AVAILABLE TO GIVE. MEDICATED PER EMAR. MULTIPLE BMS USING BSC. PATIENT IS MENSTRUATING - PROVIDED PAD WITH BRIEF. ALVARENGA DRAINING TO GRAVITY. PATIENT SLEPT ON STOMACH FROM 22-2340 - 2L NC APPLIED PATIENT DESAT TO MID-80S WHILE ASLEEP. BED LOW WITH CALL LIGHT IN REACH.
[2022-09-19 03:04] LABS: C DIFFICILE DNA NEGATIVE (Negative)
[2022-09-19 04:09] LABS: BASOPHILS ABSOLUTE AUTO 0.06 K/mm3 (0.00-0.23); BASOPHILS PERCENT AUTO 1 % (0-2); EOSINOPHILS ABSOLUTE AUTO 0.14 K/mm3 (0.00-0.68); EOSINOPHILS PERCENT AUTO 2 % (0-6); Hematocrit 25.3 % (33.0-51.0); Hemoglobin 7.3 g/dL (11.5-16.0); IMMATURE GRAN ABSOLUTE AUTO 0.11 K/mm3 (0.00-0.10); IMMATURE GRAN PERCENT AUTO 1 % (0-1); LYMPHOCYTES ABSOLUTE AUTO 1.67 K/mm3 (0.84-5.20); LYMPHOCYTES PERCENT AUTO 19 % (21-46); MONOCYTES ABSOLUTE AUTO 0.81 K/mm3 (0.16-1.47); MONOCYTES PERCENT AUTO 9 % (4-13); Mean Corpuscular HGB 23.9 pg (26.0-34.0); Mean Corpuscular HGB Conc 28.9 g/dL (31.5-36.5); Mean Corpuscular Volume 83 fL (80-100); Mean Platelet Volume 9.2 fL (9.1-12.4); NEUTROPHILS ABSOLUTE AUTO 6.14 K/mm3 (1.96-9.15); NEUTROPHILS PERCENT AUTO 69 % (41-73); Platelet Count 341 K/mm3 (150-400); Red Blood Cell Count 3.06 M/mm3 (3.80-5.20); White Blood Cell Count 8.93 K/mm3 (4.00-11.30)
[2022-09-19 04:28] LABS: Albumin, Blood 2.5 g/dL (3.4-5.0); Albumin/Globulin Ratio 0.7 (0.8-1.8); Bilirubin, Total 0.4 mg/dL (0.1-1.0); Calcium, Blood 8.9 mg/dL (8.5-10.1); Creatinine, Blood 0.74 mg/dL (0.40-1.00); Globulin, Blood 3.8 g/dL (2.2-4.0); Potassium, Blood 3.7 mmol/L (3.5-5.5); Total Protein, Blood 6.3 g/dL (6.4-8.2)
--- NOTE | 2022-09-19 07:00 | NUR ---
SHIFT SUMMARY: PATIENT HYPERTENSIVE AND PAINFUL. REPOSITIONED SELF IN BED T/O SHIFT. DISTAL PULSES STRONG AND TOES PINK AND WARM. C.DIFF NEGATIVE. ALVARENGA DRAINING TO GRAVITY. USES CALL LIGHT FREQUENTLY. BED LOW WITH CALL LIGHT IN PLACE.
[2022-09-19] MEDS ORDERED: Percocet 5-3251 EACH PO (12:10)
--- NOTE | 2022-09-19 13:02 | NUR ---
PT DISCHARGE TO HOME TODAY WITH DISCHARGE ORDERS. CATHETER WAS DC'D AND PT WAS ABLE TO VOID WITH NO ISSUES PRIOR TO DISCHARGE. LEFT HIP XRAY WAS DONE WELL NO SIGNIFICANT CHANGE ON REPORT. PT WAS RESTARTED ON PERCOCET 5/325MG, PT WAS GIVEN A DOSE THIS MORNING AND WAS EFFECTIVE. PT HAS BEEN GETTING ON VIA WALKER TO TRANSFER AND WAS ABLE TO TOLERATE. DISCHARGE INSTRUCTIONS AND NEW MEDICATION DISCLOSED WITH BOTH AND THE PT, BOTH VERBALIZED UNDERSTANDING. PRECRIPTION SENT TO [facility]. ALL BELONGINGS SENT WITH THE PT, ACCOMPANIED VIA WHEELCHAIR FOR TRANSPORT.
== END 2022-09-19 12:55 | disposition home or self-care (01) | DRG 917 ==
LOC: ER 01:56 → PCU 06:25 → ERHOLD 06:25 → ICUW 09:42 → PCU 09-18 12:54
PROVIDERS: Emergency Medicine; Family Medicine; Internal Medicine; ADMIT Internal Medicine
DX: T40.2X1A Poisoning by other opioids, accidental (unintentional), initial encounter (principal); G92.8 Other toxic encephalopathy; N17.9 Acute kidney failure, unspecified; Z68.42 Body mass index [BMI] 45.0-49.9, adult; Z28.21 Immunization not carried out because of patient refusal; J45.909 Unspecified asthma, uncomplicated; M32.9 Systemic lupus erythematosus, unspecified; E03.9 Hypothyroidism, unspecified; F32.A Depression, unspecified; F17.290 Nicotine dependence, other tobacco product, uncomplicated; E66.9 Obesity, unspecified; D63.8 Anemia in other chronic diseases classified elsewhere; F41.8 Other specified anxiety disorders; E11.649 Type 2 diabetes mellitus with hypoglycemia without coma; E11.40 Type 2 diabetes mellitus with diabetic neuropathy, unspecified; G47.33 Obstructive sleep apnea (adult) (pediatric); Z86.73 Personal history of transient ischemic attack (TIA), and cerebral infarction without residual deficits; Z90.49 Acquired absence of other specified parts of digestive tract; Z98.51 Tubal ligation status; Z98.890 Other specified postprocedural states; Z88.5 Allergy status to narcotic agent; Z88.6 Allergy status to analgesic agent; Z88.8 Allergy status to other drugs, medicaments and biological substances; Z79.84 Long term (current) use of oral hypoglycemic drugs; Z79.899 Other long term (current) drug therapy; X58.XXXA Exposure to other specified factors, initial encounter
CPT/HCPCS: 36415; 51702; 70450; 73502; 80053; 81001; 82947; 84439; 84443; 85014; 85018; 85025; 87086; 87493; 93005; 93010; 96374; 96375; 96376; 97110; 97161; 97530; 99285-25; A9270; G0480; J1650; J2060; J2310; J7030

== ENCOUNTER 2022-10-31 06:15 | Emergency (ER) | payer BC ==
[~2022-10-31] VITALS: Ht 162.6 cm; Wt 124.7 kg
[~2022-10-31 06:15] MED LIST changes: +EUTHYROX125 MCG PO
[2022-10-31] MEDS ORDERED: AMLODIPINE BESYL5 MG PO (06:38)
[2022-10-31] MEDS ORDERED: PRED20 PO (07:14)
[2022-10-31] MEDS ORDERED: LIDO700A20 TOP (07:14)
== END 2022-10-31 09:08 | disposition home or self-care (01) ==
LOC: ER 06:15
DX: M79.605 Pain in left leg (principal); E03.9 Hypothyroidism, unspecified; E11.9 Type 2 diabetes mellitus without complications; I10 Essential (primary) hypertension; F17.290 Nicotine dependence, other tobacco product, uncomplicated; Z88.5 Allergy status to narcotic agent; Z88.8 Allergy status to other drugs, medicaments and biological substances; Z79.899 Other long term (current) drug therapy; Z79.84 Long term (current) use of oral hypoglycemic drugs; Z79.890 Hormone replacement therapy
CPT/HCPCS: 36415; A9270; J1170; J1885

== ENCOUNTER 2022-11-05 17:09 | Emergency (ER) | payer BC ==
[~2022-11-05] VITALS: Ht 162.6 cm; Wt 124.7 kg
[~2022-11-05 17:09] MED LIST changes: +AMLODIPINE BESYL5 MG PO; +LIDO700A20 TOP
== END 2022-11-05 19:42 | disposition left against medical advice (07) ==
LOC: ER 17:09
DX: M54.9 Dorsalgia, unspecified (principal); Z79.52 Long term (current) use of systemic steroids; Z79.899 Other long term (current) drug therapy; Z79.890 Hormone replacement therapy; Z53.21 Procedure and treatment not carried out due to patient leaving prior to being seen by health care provider
CPT/HCPCS: 99281

== ENCOUNTER 2022-11-19 06:04 | Observation (INO) | payer BC ==
[~2022-11-19] VITALS: Ht 162.6 cm; Wt 117.9 kg
[~2022-11-19 06:04] MED LIST changes: +BUSP5 PO; -BUSPIRONE HCL10 M6 PO; -EFFEXOR XR150 MG PO; +METF500C PO; -SEROQUEL100 MG PO; +Seroquel Xr50 MG PO; +VENL75ER PO
[2022-11-19 07:04] LABS: BASOPHILS ABSOLUTE AUTO 0.05 K/mm3 (0.00-0.23); BASOPHILS PERCENT AUTO 0 % (0-2); EOSINOPHILS ABSOLUTE AUTO 0.18 K/mm3 (0.00-0.68); EOSINOPHILS PERCENT AUTO 1 % (0-6); Hematocrit 29.8 % (33.0-51.0); Hemoglobin 8.5 g/dL (11.5-16.0); IMMATURE GRAN ABSOLUTE AUTO 0.15 K/mm3 (0.00-0.10); IMMATURE GRAN PERCENT AUTO 1 % (0-1); LYMPHOCYTES ABSOLUTE AUTO 2.75 K/mm3 (0.84-5.20); LYMPHOCYTES PERCENT AUTO 12 % (21-46); MONOCYTES ABSOLUTE AUTO 1.18 K/mm3 (0.16-1.47); MONOCYTES PERCENT AUTO 5 % (4-13); Mean Corpuscular HGB 22.2 pg (26.0-34.0); Mean Corpuscular HGB Conc 28.5 g/dL (31.5-36.5); Mean Corpuscular Volume 78 fL (80-100); Mean Platelet Volume 9.1 fL (9.1-12.4); NEUTROPHILS ABSOLUTE AUTO 18.05 K/mm3 (1.96-9.15); NEUTROPHILS PERCENT AUTO 81 % (41-73); Platelet Count 691 K/mm3 (150-400); RDW Coefficient Variation 18.6 % (11.7-14.2); RDW Standard Deviation 48.6 fL (35.1-46.3); Red Blood Cell Count 3.83 M/mm3 (3.80-5.20); White Blood Cell Count 22.36 K/mm3 (4.00-11.30)
[2022-11-19 07:24] LABS: C-REACTIVE PROTEIN, EXT RANGE <0.290 mg/dL (0.000-0.300)
[2022-11-19 07:26] LABS: Anion Gap 6 mmol/L (6-16); Blood Urea Nitrogen 46 mg/dL (8-24); Bun/Creatinine Ratio 26.7 (12.0-20.0); CO2, Blood 20 mmol/L (21-32); CPK Creatine Kinase 52 U/L (26-193); Calcium, Blood 9.4 mg/dL (8.5-10.1); Chloride, Blood 113 mmol/L (98-108); Creatinine, Blood 1.72 mg/dL (0.40-1.00); Glomerular Filtration Rate 36 (60-); Glucose, Blood 91 mg/dL (70-99); Potassium, Blood 3.8 mmol/L (3.5-5.5); Sodium, Blood 139 mmol/L (136-145)
[2022-11-19] MEDS ORDERED: ONDA4ODT MM (08:59)
[2022-11-19 10:07] LABS: Influenza A, PCR NEGATIVE (NEGATIVE); Influenza B, PCR NEGATIVE (NEGATIVE); Resp Syncytial Virus, PCR NEGATIVE (NEGATIVE); SARS-Cov-2 (COVID-19) PCR, MMC NEGATIVE (NEGATIVE)
[2022-11-19 14:46] LABS: Source, Urine Clean Catch
[2022-11-19 14:55] LABS: Appearance, Urine Clear (Clear); Bilirubin, Urine Neg (Neg); Blood, Urine Neg (Neg); Color, Urine Yellow (P-Yellow); Glucose Qualitative, Urine Neg (Neg); Ketones, Urine Neg (Neg); Leukocyte Esterase, Urine Neg (Neg); Nitrite, Urine Neg (Neg); Protein, Urine Neg (Neg); Urobilinogen, Urine NORM (Normal)
--- NOTE | 2022-11-19 19:18 | NUR ---
PT ALERT NO S/S OF ACUTE DISTRESS. SAFETY MEASURES IN PLACE, REPORT GIVEN TO ON COMING NURSE.
[2022-11-19] MEDS ORDERED: DICL75ER PO (19:45)
[2022-11-19] MEDS ORDERED: MEDR10 PO (19:49)
[2022-11-20 05:32] LABS: BASOPHILS ABSOLUTE AUTO 0.06 K/mm3 (0.00-0.23); BASOPHILS PERCENT AUTO 1 % (0-2); EOSINOPHILS ABSOLUTE AUTO 0.41 K/mm3 (0.00-0.68); EOSINOPHILS PERCENT AUTO 4 % (0-6); Hematocrit 27.2 % (33.0-51.0); Hemoglobin 7.8 g/dL (11.5-16.0); IMMATURE GRAN PERCENT AUTO 1 % (0-1); LYMPHOCYTES ABSOLUTE AUTO 2.23 K/mm3 (0.84-5.20); LYMPHOCYTES PERCENT AUTO 22 % (21-46); MONOCYTES ABSOLUTE AUTO 0.85 K/mm3 (0.16-1.47); MONOCYTES PERCENT AUTO 8 % (4-13); Mean Corpuscular HGB 22.7 pg (26.0-34.0); Mean Corpuscular HGB Conc 28.7 g/dL (31.5-36.5); Mean Corpuscular Volume 79 fL (80-100); Mean Platelet Volume 9.2 fL (9.1-12.4); NEUTROPHILS ABSOLUTE AUTO 6.54 K/mm3 (1.96-9.15); NEUTROPHILS PERCENT AUTO 64 % (41-73); Platelet Count 584 K/mm3 (150-400); RDW Coefficient Variation 19.3 % (11.7-14.2); RDW Standard Deviation 50.6 fL (35.1-46.3); Red Blood Cell Count 3.44 M/mm3 (3.80-5.20); White Blood Cell Count 10.19 K/mm3 (4.00-11.30)
--- NOTE | 2022-11-20 05:39 | NUR ---
SHIFT SUMMARY - PT HAS CONTINUED TO REPORT A HIGH LEVEL OF PAIN, PRIMARILY TO HER LEFT FOOT, AND LEFT LEG. PT REPORTS SHE HAS BEEN EXPERIENCING THIS PAIN, SINCE APPROXIMATELY SEPTEMBER 30. PT APPEARS TO WATCH THE CLOCK FOR PAIN MEDICATION. OTHERWISE, NO ACUTE CHANGES THROUGHOUT THE NIGHT. CALL LIGHT WITHIN REACH. BED IN LOW POSITION. PT HAS BEEN COOPERATIVE WITH CARE. FLUIDS AT BEDSIDE.
[2022-11-20 06:04] LABS: Albumin, Blood 3.6 g/dL (3.4-5.0); Anion Gap 7 mmol/L (6-16); Blood Urea Nitrogen 18 mg/dL (8-24); Bun/Creatinine Ratio 19.7 (12.0-20.0); CO2, Blood 25 mmol/L (21-32); Calcium, Blood 8.9 mg/dL (8.5-10.1); Chloride, Blood 105 mmol/L (98-108); Creatinine, Blood 0.91 mg/dL (0.40-1.00); Glomerular Filtration Rate 76 (60-); Glucose, Blood 105 mg/dL (70-99); Magnesium, Blood 1.8 mg/dL (1.6-2.4); Phosphorus, Blood 2.5 mg/dL (2.5-4.9); Potassium, Blood 3.6 mmol/L (3.5-5.5); Sodium, Blood 137 mmol/L (136-145)
--- NOTE | 2022-11-20 06:51 | NUR ---
GAVE 2ND PACKET OF NEUTRO PHOS - WOULDN'T LET ME DOCUMENT THE 2ND PACKET BECAUSE IT WAS A ONE TIME DOSE - SEE EMAR NOTE. PT GOT A TOTAL OF 2PACKETS OF NEUTRO PHOS.
== END 2022-11-20 11:39 | disposition home or self-care (01) ==
LOC: ER 06:04 → MEDS 06:05
PROVIDERS: Student in an Organized Health Care Education/Training Program; ADMIT Family Medicine
DX: M79.662 Pain in left lower leg (principal); G89.4 Chronic pain syndrome; Z20.822 Contact with and (suspected) exposure to COVID-19
CPT/HCPCS: 0241U; 36415; 80048; 80069; 81003; 82550; 83605; 83735; 84145; 85025; 85651; 86140; A9270; J0360; J1170; J1644; J1885; J2405; J2916; J7030; J7512

== ENCOUNTER 2023-01-21 07:58 | Day surgery (SDC) | payer BC ==
[~2023-01-21] VITALS: Ht 162.6 cm; Wt 119.4 kg
[~2023-01-21 07:58] MED LIST changes: +MEDR10 PO; +NARCAN4 M1; +ONDA4ODT MM; +SUBOXONE 8 MG-1 EACH SL
[2023-01-21 08:45] VITALS: BP 123/79
--- NOTE | 2023-01-21 09:09 | NUR ---
PRE-PROCEDURE NOTE Patient confirms NPO status and agrees with scheduled surgery. Pre-Op teaching done. Pt verbalizes understanding. Patient States Post-Procedure ride home has been arranged.PT AMBULATES C CANE AND EASILY BECOMES SOB. BREATHING RA IN DAY SURGERY
--- NOTE | 2023-01-21 09:23 | NUR ---
01/21/23 0923 Edison Rao [address]ESTHESIA PER DR. VELÁZQUEZ
[2023-01-21 09:43] VITALS: BP 157/85
[2023-01-21 10:01] VITALS: BP 145/81
--- NOTE | 2023-01-21 10:11 | NUR ---
Discharge instructions reviewed with patient. Patient verbalizes understanding. Copy given to patient to take home. Patient States Post-Procedure ride home has been arranged. Discharged via wheelchair to private car for ride home. POST-OP CBG- 91.
== END 2023-01-21 23:00 | disposition home or self-care (01) ==
LOC: ORSCMMR 07:58 → ORD 09:00 → ORSCMMR 23:00
PROVIDERS: Surgery
PROC: 0DJD8ZZ Inspection of Lower Intestinal Tract, Via Natural or Artificial Opening Endoscopic (ICD-10-PCS; principal; 2023-01-21 09:00)
DX: K92.1 Melena (principal); K64.1 Second degree hemorrhoids; I10 Essential (primary) hypertension; G47.33 Obstructive sleep apnea (adult) (pediatric); J45.909 Unspecified asthma, uncomplicated; E11.9 Type 2 diabetes mellitus without complications; E03.9 Hypothyroidism, unspecified; K76.0 Fatty (change of) liver, not elsewhere classified; F41.9 Anxiety disorder, unspecified; E66.01 Morbid (severe) obesity due to excess calories; Z68.42 Body mass index [BMI] 45.0-49.9, adult; Z79.84 Long term (current) use of oral hypoglycemic drugs; Z79.899 Other long term (current) drug therapy
CPT/HCPCS: 82947; J2704; J7120

== ENCOUNTER 2023-05-26 01:31 | Inpatient (IN) | payer BC ==
[~2023-05-26] VITALS: Ht 162.6 cm; Wt 124.9 kg
[2023-05-26] VITALS (44 sets, daily range): BP systolic 58–111; BP diastolic 40–74
[2023-05-26 02:19] LABS: Albumin, Blood 3.2 g/dL (3.4-5.0); Albumin/Globulin Ratio 0.9 (0.8-1.8); Bilirubin, Total 0.3 mg/dL (0.1-1.0); Bun/Creatinine Ratio 21.8 (12.0-20.0); Calcium, Blood 8.6 mg/dL (8.5-10.1); Creatinine, Blood 1.65 mg/dL (0.40-1.00); Globulin, Blood 3.6 g/dL (2.2-4.0); Potassium, Blood 3.9 mmol/L (3.5-5.5); Total Protein, Blood 6.8 g/dL (6.4-8.2)
[2023-05-26 02:30] LABS: BASOPHILS ABSOLUTE AUTO 0.18 K/mm3 (0.00-0.23); BASOPHILS PERCENT AUTO 1 % (0-2); EOSINOPHILS ABSOLUTE AUTO 0.87 K/mm3 (0.00-0.68); EOSINOPHILS PERCENT AUTO 4 % (0-6); Hematocrit 38.6 % (33.0-51.0); Hemoglobin 11.7 g/dL (11.5-16.0); IMMATURE GRAN ABSOLUTE AUTO 0.69 K/mm3 (0.00-0.10); IMMATURE GRAN PERCENT AUTO 3 % (0-1); LYMPHOCYTES ABSOLUTE AUTO 3.53 K/mm3 (0.84-5.20); LYMPHOCYTES PERCENT AUTO 17 % (21-46); MONOCYTES ABSOLUTE AUTO 0.64 K/mm3 (0.16-1.47); MONOCYTES PERCENT AUTO 3 % (4-13); Mean Corpuscular HGB 26.8 pg (26.0-34.0); Mean Corpuscular HGB Conc 30.3 g/dL (31.5-36.5); Mean Corpuscular Volume 88 fL (80-100); Mean Platelet Volume 9.7 fL (9.1-12.4); NEUTROPHILS ABSOLUTE AUTO 14.66 K/mm3 (1.96-9.15); NEUTROPHILS PERCENT AUTO 71 % (41-73); Platelet Count 687 K/mm3 (150-400); RDW Standard Deviation 48.7 fL (35.1-46.3); Red Blood Cell Count 4.37 M/mm3 (3.80-5.20); White Blood Cell Count 20.57 K/mm3 (4.00-11.30)
[2023-05-26 06:01] LABS: BASOPHILS ABSOLUTE AUTO 0.08 K/mm3 (0.00-0.23); BASOPHILS PERCENT AUTO 0 % (0-2); EOSINOPHILS ABSOLUTE AUTO 0.11 K/mm3 (0.00-0.68); EOSINOPHILS PERCENT AUTO 1 % (0-6); Hematocrit 36.6 % (33.0-51.0); IMMATURE GRAN ABSOLUTE AUTO 0.45 K/mm3 (0.00-0.10); IMMATURE GRAN PERCENT AUTO 2 % (0-1); LYMPHOCYTES ABSOLUTE AUTO 1.19 K/mm3 (0.84-5.20); LYMPHOCYTES PERCENT AUTO 5 % (21-46); MONOCYTES ABSOLUTE AUTO 1.64 K/mm3 (0.16-1.47); MONOCYTES PERCENT AUTO 7 % (4-13); Mean Corpuscular HGB 26.5 pg (26.0-34.0); Mean Corpuscular HGB Conc 30.1 g/dL (31.5-36.5); Mean Corpuscular Volume 88 fL (80-100); Mean Platelet Volume 9.3 fL (9.1-12.4); NEUTROPHILS ABSOLUTE AUTO 20.52 K/mm3 (1.96-9.15); NEUTROPHILS PERCENT AUTO 86 % (41-73); Platelet Count 508 K/mm3 (150-400); RDW Standard Deviation 48.3 fL (35.1-46.3); Red Blood Cell Count 4.15 M/mm3 (3.80-5.20); White Blood Cell Count 23.99 K/mm3 (4.00-11.30)
[2023-05-26 06:11] LABS: International Normalized Ratio 1.01; Prothrombin Time Results 10.6 Sec (9.7-11.5)
--- NOTE | 2023-05-26 06:24 | NUR ---
ADMIT RECIEVED FROM ER VIA [facility]. AWAKE AND ALERT. COLOR PALE, SKIN COOL AND CLAMMY. ABLE TO TRANSFER SELF FROM GURNEY TO BED, BUT PT IS WEAK. MONITOR SHOWS NSR, RATE 80s. BP WITH MAP OF 66 AT THIS TIME. 02 98% ON 1L NC. RESPIRATIONS EVEN AND UNLABORED. DENIES C/O NAUSEA AT THIS TIME. MOANS OCCASIONALLY. PT IS ABLE TO REPOSITION SELF IN BED.
[2023-05-26 06:32] LABS: Albumin, Blood 2.8 g/dL (3.4-5.0); Albumin/Globulin Ratio 0.9 (0.8-1.8); Bilirubin, Total 0.4 mg/dL (0.1-1.0); Calcium, Blood 7.7 mg/dL (8.5-10.1); Creatinine, Blood 1.83 mg/dL (0.40-1.00); Globulin, Blood 3.1 g/dL (2.2-4.0); Magnesium, Blood 1.9 mg/dL (1.6-2.4); Potassium, Blood 3.9 mmol/L (3.5-5.5); Total Protein, Blood 5.9 g/dL (6.4-8.2)
[2023-05-26 07:38] LABS: Adenovirus F 40/41 Not Detected (NOT DETECT); Astrovirus Not Detected (NOT DETECT); Campylobacter Sp Not Detected (NOT DETECT); Cryptosporidium Not Detected (NOT DETECT); Cyclospora Cayetanensis Not Detected (NOT DETECT); E. Coli O157 Not Detected (NOT DETECT); Entamoeba Histolytica Not Detected (NOT DETECT); Enteroaggregative E. coli-EAEC Not Detected (NOT DETECT); Enteropathogenic E. coli-EPEC Not Detected (NOT DETECT); Enterotoxigenic E. coli-ETEC Not Detected (NOT DETECT); Giardia Lamblia Not Detected (NOT DETECT); Norovirus GI/GII Not Detected (NOT DETECT); Plesiomonas Shigelloides Not Detected (NOT DETECT); Rotavirus A Not Detected (NOT DETECT); Salmonella Sp Not Detected (NOT DETECT); Sapovirus Not Detected (NOT DETECT); Shiga Toxin-prod E. coli-STEC Not Detected (NOT DETECT); Shigella/Enteroin E. coli-EIEC Not Detected (NOT DETECT); Vibrio Cholerae Not Detected (NOT DETECT); Vibrio Sp Not Detected (NOT DETECT); Yersinia Enterocolitica Not Detected (NOT DETECT)
--- NOTE | 2023-05-26 10:13 | NUR ---
CARE ASSUMPTION this rn assumed care at 0700. soft bp. patient lethargic, alert with verbal stimuli and then falls back asleep, oriented place perosn date year. at bedside. admit completed by steph rn. patient receive 1L LR bolus and continous LR at 150mls/hr. plan of care up to date
[2023-05-26] MEDS ORDERED: HYDHCL25 PO (10:37)
[2023-05-26] MEDS ORDERED: BUSPIRONE HCL5 M6 PO (10:40)
[2023-05-26 15:07] LABS: BASOPHILS ABSOLUTE AUTO 0.06 K/mm3 (0.00-0.23); BASOPHILS PERCENT AUTO 0 % (0-2); EOSINOPHILS ABSOLUTE AUTO 0.04 K/mm3 (0.00-0.68); EOSINOPHILS PERCENT AUTO 0 % (0-6); Hematocrit 33.2 % (33.0-51.0); Hemoglobin 10.2 g/dL (11.5-16.0); IMMATURE GRAN ABSOLUTE AUTO 0.18 K/mm3 (0.00-0.10); IMMATURE GRAN PERCENT AUTO 1 % (0-1); LYMPHOCYTES ABSOLUTE AUTO 0.79 K/mm3 (0.84-5.20); LYMPHOCYTES PERCENT AUTO 4 % (21-46); MONOCYTES ABSOLUTE AUTO 0.77 K/mm3 (0.16-1.47); MONOCYTES PERCENT AUTO 4 % (4-13); Mean Corpuscular HGB 26.4 pg (26.0-34.0); Mean Corpuscular HGB Conc 30.7 g/dL (31.5-36.5); Mean Corpuscular Volume 86 fL (80-100); Mean Platelet Volume 9.5 fL (9.1-12.4); NEUTROPHILS ABSOLUTE AUTO 16.06 K/mm3 (1.96-9.15); NEUTROPHILS PERCENT AUTO 90 % (41-73); Platelet Count 486 K/mm3 (150-400); RDW Coefficient Variation 15.2 % (11.7-14.2); RDW Standard Deviation 48.4 fL (35.1-46.3); Red Blood Cell Count 3.86 M/mm3 (3.80-5.20)
--- NOTE | 2023-05-26 17:53 | NUR ---
SHIFT SUMMARY/TRANSFER TO ICU patient blood pressure remained soft despite multiple LR bolus and continous LR at 150, and then increased rate to 200ml/hr. this rn discussed plan with md sutton and after bolus of fluid if patient remained hypotensive would transfer to icu. patient remained hypotensive. this rn updated md sutton and transfer orders placed. this rn updated , who was at bedside of plan of care. patient belongings gathered and transported with patient to icu.
[2023-05-26 18:42] LABS: Source, Urine Foley catheter
[2023-05-26 19:00] LABS: Appearance, Urine Hazy (Clear); Blood, Urine 1+ (Neg); Color, Urine Yellow (P-Yellow); Glucose Qualitative, Urine Neg (Neg); Ketones, Urine Neg (Neg); Leukocyte Esterase, Urine 2+ (Neg); Nitrite, Urine Neg (Neg); Protein, Urine 2+ (Neg); Specific Gravity, Urine 1.015 (1.003-1.022); Urobilinogen, Urine 1+ (Normal)
--- NOTE | 2023-05-26 19:00 | NUR ---
ASSUMED CARE ASSUMED CARE OF PATIENT. LETHARGIC AND WEAK. ROUSES EASILY TO STIMULI AND IS ABLE TO STAY AWAKE FOR FAMILY. FALLS QUICKLY BACK TO SLEEP WHEN LEFT ALONE. MOVES ALL EXTREMITIES. REPOSITIONS SELF IN BED. ORIENTED AND COOPERATIVE WITH CARE. MOANS FREQUENTLY. C/O "BELLY AND BACK" PAIN, WELL GENERAL DISCOMFORT. MONITOR SHOWS SR-ST, RATE 90s-100s. LEVOPHED INFUSING AT 12MCG/MIN TO MAINTAIN MAP >65. LR INFUSING AT 200MLS/HR. COLOR PALE. SKIN IS COOL AND SLIGHLTLY CLAMMY. NPO EXCEPT ICE CHIPS. ALVARENGA PATENT AND DRAINING TO GRAVITY. TEMP 100.7F. SEE SHIFT ASSESSMENT FOR FULL ASSESSMENT.
--- NOTE | 2023-05-26 19:15 | NUR ---
SUMMARY Assumed care of pt on arrival to ICU 1 from PCU at 1711. Report received from Sanna GARCIA. Pt A&O x 4. Answers questions, follows commands, verbalizes needs. Pleasant and cooperative with care. Pt states acute pain to ABD and chronic pain to back. States she takes suboxone at home two 2.0 mg/ 0.5 mg tablets. Verified dose with abbie dixon, this is Q8H. Dr Alegria notified and provider gave v/o for suboxone. Pt on 2 LPM NC, SpO2 90% or greater. SR-ST per monitor. Levophed started and incrementally increased to 12 mcg/min. PICC line to NESTOR placed by capacity planning analyst. Runs of Vtach after placement of PICC, CXR obtained to verify placement. Veliz placed for crit care needs with v/o Dr Alegria. Pt reports that she has not voided urine since yesterday. Bladder scan showed 420 mL. Pt' spouse, Garth, and daughter, Jay, at bedside. Report given to JOSE Madrid.
[2023-05-26 19:22] LABS: Bilirubin, Urine 1+ (Neg)
[2023-05-26 19:24] LABS: White Blood Cells, Urine 50-100 /hpf (0-5)
[2023-05-26 19:29] LABS: Bacteria Many /hpf; Renal Epithelial Mod /hpf (0-Rare); Squamous Epithelial Cells Few /hpf (Few)
[2023-05-26 19:30] LABS: Hyaline Casts 0-2 /lpf (0-2); WBC Cast 0-2 /lpf (0)
[2023-05-27] VITALS (81 sets, daily range): BP systolic 80–142; BP diastolic 45–117
[2023-05-27] MEDS ORDERED: BUPRENORPHIN-N1 EAC1 SL (01:20)
[2023-05-27 04:46] LABS: BASOPHILS ABSOLUTE AUTO 0.07 K/mm3 (0.00-0.23); BASOPHILS PERCENT AUTO 0 % (0-2); Hematocrit 28.1 % (33.0-51.0); Hemoglobin 8.8 g/dL (11.5-16.0); LYMPHOCYTES ABSOLUTE AUTO 1.12 K/mm3 (0.84-5.20); LYMPHOCYTES PERCENT AUTO 6 % (21-46); MONOCYTES PERCENT AUTO 6 % (4-13); Mean Corpuscular HGB 26.7 pg (26.0-34.0); Mean Corpuscular HGB Conc 31.3 g/dL (31.5-36.5); Mean Corpuscular Volume 85 fL (80-100); Mean Platelet Volume 9.5 fL (9.1-12.4); Platelet Count 437 K/mm3 (150-400); RDW Coefficient Variation 15.2 % (11.7-14.2); RDW Standard Deviation 47.6 fL (35.1-46.3); Red Blood Cell Count 3.29 M/mm3 (3.80-5.20); White Blood Cell Count 19.49 K/mm3 (4.00-11.30)
[2023-05-27 04:48] LABS: EOSINOPHILS ABSOLUTE AUTO 0.31 K/mm3 (0.00-0.68); EOSINOPHILS PERCENT AUTO 2 % (0-6); IMMATURE GRAN ABSOLUTE AUTO 0.11 K/mm3 (0.00-0.10); IMMATURE GRAN PERCENT AUTO 1 % (0-1); NEUTROPHILS ABSOLUTE AUTO 16.68 K/mm3 (1.96-9.15); NEUTROPHILS PERCENT AUTO 86 % (41-73)
[2023-05-27 05:14] LABS: Albumin, Blood 2.4 g/dL (3.4-5.0); Albumin/Globulin Ratio 0.8 (0.8-1.8); Bilirubin, Total 0.5 mg/dL (0.1-1.0); Bun/Creatinine Ratio 24.4 (12.0-20.0); Calcium, Blood 7.5 mg/dL (8.5-10.1); Creatinine, Blood 1.6 mg/dL (0.40-1.00); Magnesium, Blood 1.5 mg/dL (1.6-2.4); Phosphorus, Blood 3.9 mg/dL (2.5-4.9); Total Protein, Blood 5.4 g/dL (6.4-8.2)
[2023-05-27 05:30] LABS: BAND PERCENT MAN 6 % (0-8); BASOPHILS PERCENT MAN 0 % (0-2); EOSINOPHILS ABSOLUTE MAN 0.38 K/mm3 (0.00-0.68); EOSINOPHILS PERCENT MAN 2 % (0-6); LYMPHOCYTES ABSOLUTE MAN 0.77 K/mm3 (0.84-5.20); LYMPHOCYTES PERCENT MAN 4 % (21-46); MONOCYTES ABSOLUTE MAN 0.97 K/mm3 (0.16-1.47); MONOCYTES PERCENT MAN 5 % (4-13); MYELOCYTE ABSOLUTE MAN 0.19 K/mm3 (0.00-0.00); MYELOCYTE PERCENT MAN 1 % (0-0); NEUTROPHILS ABSOLUTE MAN 17.15 K/mm3 (1.96-9.15); SEG NEUTROPHILS PERCENT MAN 82 % (41-73); TOTAL CELLS COUNTED 100
--- NOTE | 2023-05-27 06:09 | NUR ---
SHIFT SUMMARY NO ACUTE CHANGES DURING NOC. CONTINUES TO BE WEAK AND LETHARGIC. ROUSES EASILY TO STIMULI. REPOSITIONS SELF IN BED AND MOVES ALL EXTREMITIES. MEDICATED WITH SCHEDULED SUBOXONE FOR C/O CHRONIC BACK PAIN AND ABDOMINAL PAIN. ALSO C/O GENERALIZED DISCOMFORT. HR 90s-100s. LEVOPHED INFUSED BETWEEN 12-17MCG/MIN TO MAINTAIN MAP >65. NOW INFUSING AT 12MCG/MIN. TMAX 100.8F LR INFUSING AT 200MLS/HR PER ORDER. NESTOR PICC LINE AND GISELE POWERGLIDE PATENT, DRSGS C/D/I. NPO EXCEPT FEW ICE CHIPS. ALVARENGA PATENT AND DRAINING YELLOW URINE. MAGNESIUM LEVEL 1.5 THIS AM- RECEIVING MAGNESIUM IVPB AT THIS TIME. PT PLACED IN ISOLATION UNTIL C. DIFF RULED OUT. WILL REPORT TO ONCOMING RN WHEN AVAILABLE.
--- NOTE | 2023-05-27 07:56 | NUR ---
Assumed care of pt at 0700. Report recevied from Mercy GARCIA. Pt A&O x 2. Answers questions, follows commands, verbalizes needs. Pleasant and cooperative with care. States that she is hungry and is anxiously waiting for hospitalist to tell her she can eat. States ABD pain 2/10 at rest, but worsens with moving. Also states back pain, which is typical for her, worse when resting but better with moving. Levophed at 11 mcg/min. SpO2 90% or greater RA. SR per monitor.
[2023-05-27 14:14] LABS: C DIFFICILE DNA NEGATIVE (Negative)
[2023-05-27 15:33] LABS: Calcium, Blood 7.7 mg/dL (8.5-10.1); Magnesium, Blood 1.8 mg/dL (1.6-2.4); Phosphorus, Blood 1.8 mg/dL (2.5-4.9); Potassium, Blood 3.9 mmol/L (3.5-5.5)
--- NOTE | 2023-05-27 17:35 | NUR ---
SUMMARY Neuro: A&O x 2. Answers questions, follows commands, verbalizes needs, pleasant and cooperative with care. Moves all extremities with equal strength and range of motion. Tmax 101.6, tylenol given. New blood cultures obtained. Pt's records from [facility] state she is allergic to tylenol, but patient stated this is not factual. Pt states she feels cold and is "shaking" from being cold- for this reason, external cooling measures not used. Musc: Has not gotten OOB but is able to assist with ADLs. Pt is repositioning independently. Resp: Lungs clear t/o. SpO2 90% or greater RA. Cardiac: ST, rate 126. Increase in HR correlates with increase in temperature. BP stable, levophed off. Color, sensation, pulses, capillary refill equal BUE/BLE. GI: Rectal tube in place with small amount of brown output. Abd distended and tender on palpation but unchanged from initial assessment. : Good urine output from magaña catheter. Urine is clear and lon. Skin: Unchanged from initial assessment. CHG bath done this shift. Powder applied to abdominal and groin folds for moisture management. Psych: Pt's family in to visit today. Pt cooperative with care, anxious at times but responds well to therapeutic communication.
--- NOTE | 2023-05-27 19:20 | NUR ---
UPDATE PT COMPLAINING OF INTERMITTENT "BURNING/SHOCK" PAIN IN LEFT LATERAL ANKLE. ANKLE APPEARS TO HAVE MINIMAL SWELLING; NO REDNESS; BILATERALLY EQUAL IN TEMPERATURE. PT DENIES HITTING ANKLE ON ANYTHING AND THAT PAIN STARTING THIS MORNING. RICHIE KIRAN DIRECTOR OF EMERGENCY NURSING NOTIFIED W/ ORDERS TO MONITOR AND NOTIFY AM HOSPITALIST ABOUT WHAT FURTHER STEPS THEY WOULD LIKE TO TAKE; STATED HE WILL STOP BY IF POSSIBLE TONIGHT TO ASSESS.
--- NOTE | 2023-05-27 20:51 | NUR ---
ASSUMED CARE PT IS A&O X4; FAMILY AT BEDSIDE AT START OF SHIFT. PT DENIES CP, SOB, OR NAUSEA (HAD ONE EPISODE OF VOMITING, BUT DENIED NAUSEA "IT HAPPENED SO FAST"). PT REPORTS ABDOMINAL PX THAT IS INTERMITTENT; NO INCREASE IN SEVERITY; TENDER TO PALPATION. PT REPORTS LOWER CHRONIC BACK PX. NO REPORT OF ANKLE PX SINCE PREVIOUS NOTE. ALVARENGA CATHETER AND RECTAL TUBE PATENT AND DRAINING.
--- NOTE | 2023-05-27 22:14 | NUR ---
UPDATE PT MADE PCU/MEDICAL STATUS; DISCUSSED W/ NEWSPAPER PEDDLER AND MEDICAL FLOOR STATUS WAS MADE PER ORDER.
[2023-05-28] VITALS: BP 121/106
[2023-05-28 00:36] VITALS: BP 120/65
--- NOTE | 2023-05-28 00:42 | NUR ---
TRANSFER PT TRANSFERRED TO 332 W/ MEDS AND BELONGINGS.
[2023-05-28 03:57] VITALS: BP 127/75
--- NOTE | 2023-05-28 04:00 | NUR ---
SHIFT SUMMARY. PT ARRIVED ON UNIT FROM ICU EARLY THIS MORNING. AOX4, PLEASANT, COOPERATIVE WITH CARE. SATTING WELL ON ROOM AIR. TELE ON RUNNING TACHY THUS FAR. BLOOD PRESSURES STABLE. NO COMPLAINTS OF PAIN THUS FAR. SOME NAUSEA AFTER ARRIVING THAT HAS BEEN WELL MANAGED VIA PRN ZOFRAN. BEDREST FOR TIME BEING. LR RUNNING @ 200 MLS/HR. ALVARENGA CATHETER IN PLACE PATENT AND DRAINING WELL. SHIFT ASSESSMENT PERFORMED IN ICU. EDUCATED INVESTOR RELATIONS ANALYST LIGHT USE AND HAS USED IT APPROPRIATELY THUS FAR. BED LOCKED IN LOWEST POSITION. CALL LIGHT LEFT WITHIN REACH.
[2023-05-28 06:09] LABS: BASOPHILS ABSOLUTE AUTO 0.07 K/mm3 (0.00-0.23); BASOPHILS PERCENT AUTO 0 % (0-2); EOSINOPHILS ABSOLUTE AUTO 0.48 K/mm3 (0.00-0.68); EOSINOPHILS PERCENT AUTO 3 % (0-6); Hematocrit 23.3 % (33.0-51.0); Hemoglobin 7.3 g/dL (11.5-16.0); IMMATURE GRAN ABSOLUTE AUTO 0.32 K/mm3 (0.00-0.10); IMMATURE GRAN PERCENT AUTO 2 % (0-1); LYMPHOCYTES ABSOLUTE AUTO 1.28 K/mm3 (0.84-5.20); LYMPHOCYTES PERCENT AUTO 8 % (21-46); MONOCYTES ABSOLUTE AUTO 1.08 K/mm3 (0.16-1.47); MONOCYTES PERCENT AUTO 7 % (4-13); Mean Corpuscular HGB 26.5 pg (26.0-34.0); Mean Corpuscular HGB Conc 31.3 g/dL (31.5-36.5); Mean Corpuscular Volume 85 fL (80-100); Mean Platelet Volume 9.7 fL (9.1-12.4); NEUTROPHILS ABSOLUTE AUTO 13.12 K/mm3 (1.96-9.15); NEUTROPHILS PERCENT AUTO 80 % (41-73); Platelet Count 308 K/mm3 (150-400); RDW Coefficient Variation 15.3 % (11.7-14.2); RDW Standard Deviation 47.5 fL (35.1-46.3); Red Blood Cell Count 2.75 M/mm3 (3.80-5.20); White Blood Cell Count 16.35 K/mm3 (4.00-11.30)
[2023-05-28 07:00] LABS: Albumin, Blood 2.2 g/dL (3.4-5.0); Albumin/Globulin Ratio 0.7 (0.8-1.8); Bilirubin, Total 0.4 mg/dL (0.1-1.0); Calcium, Blood 7.8 mg/dL (8.5-10.1); Creatinine, Blood 0.71 mg/dL (0.40-1.00); Globulin, Blood 3.2 g/dL (2.2-4.0); Magnesium, Blood 1.4 mg/dL (1.6-2.4); Phosphorus, Blood 1.8 mg/dL (2.5-4.9); Potassium, Blood 3.6 mmol/L (3.5-5.5); Total Protein, Blood 5.4 g/dL (6.4-8.2)
[2023-05-28 07:19] VITALS: BP 138/74
[2023-05-28] MEDS ORDERED: LYRICA PO (14:49)
[2023-05-28 14:53] LABS: Magnesium, Blood 1.3 mg/dL (1.6-2.4)
[2023-05-28] MEDS ORDERED: HYDHCL25 PO (14:55)
[2023-05-28] MEDS ORDERED: ONDA4ODT MM (14:56)
[2023-05-28] MEDS ORDERED: MEDR10 PO (14:59)
[2023-05-28 15:05] LABS: Phosphorus, Blood >18.0 mg/dL (2.5-4.9)
[2023-05-28 16:38] VITALS: BP 145/85
[2023-05-28 16:55] LABS: Bun/Creatinine Ratio 12.8 (12.0-20.0); Calcium, Blood 7.9 mg/dL (8.5-10.1); Creatinine, Blood 0.63 mg/dL (0.40-1.00); Potassium, Blood 3.5 mmol/L (3.5-5.5)
--- NOTE | 2023-05-28 17:59 | NUR ---
SHIFT SUMMARY PT AOX4, IP ASSIST TO THE BSC. ALVARENGA IN PLACE AND DRAINING. PT REQUESTED THE RESTART OF HER HOME MEDICATIONS. THIS NURSE RECONCILED HER HOME MEDICATIONS USING HER BOTTLES FROM HOME. DR. VEGA WAS NOTIFIED AND SAID HE WOULD REVIEW AND RESTART THOSE POSSIBLE. PT CALLS WELL AND MAKES HER NEEDS KNOWN. PT HAS LIQUID-LIKE STOOLS AT THE START OF THE SHIFT, MEDICATED PER THE EMAR. PT HAS DENIED ANY CP/SOB/N/V. MEDS ORDERED LABS WERE DRAWN, SEE EMAR. PT EAGER TO GO HOME. FIRE SAFETY PROTOCOLS AND PROCEDURES DISCUSSED AND PT DENIES HAVING AN IGNITION SOURCE. PT IS ON RA. CALL LIGHT WITHIN REACH, BED IN THE LOWEST POSITION. WILL REPORT TO ONCOMING NURSE.
[2023-05-28 20:16] VITALS: BP 144/82
--- NOTE | 2023-05-29 04:10 | NUR ---
SHIFT SUMMARY ADMITTED FOR ENTEROCOLITIS. FULL CODE. MULTIPLE ANTIB RX ARE SCHEDULED. PICC LINE IN RUE, POWERGLIDE IN LUE. ALVARENGA IN PLACE. LR IS INFUSING ORDERED. TELEMETRY: NSR @ 92 BPM. C DIFF TESTS X2 HAVE BEEN NEGATIVE. MONITORING ELECTROLYTE LABS. ADA/SOFT DIET. ACHS CBG'S - LOW SS. SHE IS ON SUBOXONE
[2023-05-29 04:25] VITALS: BP 134/87
[2023-05-29 07:37] LABS: BASOPHILS ABSOLUTE AUTO 0.04 K/mm3 (0.00-0.23); BASOPHILS PERCENT AUTO 0 % (0-2); EOSINOPHILS ABSOLUTE AUTO 0.45 K/mm3 (0.00-0.68); EOSINOPHILS PERCENT AUTO 4 % (0-6); Hematocrit 23.1 % (33.0-51.0); Hemoglobin 7.2 g/dL (11.5-16.0); IMMATURE GRAN ABSOLUTE AUTO 0.23 K/mm3 (0.00-0.10); IMMATURE GRAN PERCENT AUTO 2 % (0-1); LYMPHOCYTES ABSOLUTE AUTO 1.04 K/mm3 (0.84-5.20); LYMPHOCYTES PERCENT AUTO 10 % (21-46); MONOCYTES ABSOLUTE AUTO 0.75 K/mm3 (0.16-1.47); MONOCYTES PERCENT AUTO 7 % (4-13); Mean Corpuscular HGB 26.8 pg (26.0-34.0); Mean Corpuscular HGB Conc 31.2 g/dL (31.5-36.5); Mean Corpuscular Volume 86 fL (80-100); Mean Platelet Volume 9.7 fL (9.1-12.4); NEUTROPHILS ABSOLUTE AUTO 8.23 K/mm3 (1.96-9.15); NEUTROPHILS PERCENT AUTO 77 % (41-73); Platelet Count 306 K/mm3 (150-400); RDW Coefficient Variation 15.3 % (11.7-14.2); RDW Standard Deviation 48.5 fL (35.1-46.3); Red Blood Cell Count 2.69 M/mm3 (3.80-5.20); White Blood Cell Count 10.74 K/mm3 (4.00-11.30)
[2023-05-29 07:54] LABS: Magnesium, Blood 1.6 mg/dL (1.6-2.4); Phosphorus, Blood 1.5 mg/dL (2.5-4.9)
[2023-05-29 08:17] VITALS: BP 121/79
[2023-05-29 13:21] LABS: Bun/Creatinine Ratio 11.1 (12.0-20.0); Calcium, Blood 8.2 mg/dL (8.5-10.1); Creatinine, Blood 0.63 mg/dL (0.40-1.00); Potassium, Blood 3.4 mmol/L (3.5-5.5)
[2023-05-29 15:13] LABS: Magnesium, Blood 2.1 mg/dL (1.6-2.4); Phosphorus, Blood 2.1 mg/dL (2.5-4.9)
[2023-05-29 15:24] VITALS: BP 129/83
--- NOTE | 2023-05-29 17:16 | NUR ---
SHIFT SUMMARY PT AOX4, SBA TO THE C. CATHETER REMOVED THIS SHIFT AND PT TOLERATED IT WELL. C/O NAUSEA AT THE START OF THE SHIFT, MEDICATED PER THE EMAR. MOST OF HER HOME MEDICATIONS WERE RESTARTED THIS SHIFT AFTER BEING REVIEWED BY DR. VEGA. FAMILY AT THE THIS SHIFT. SHE APPEARS TO BE IMPROVING AND REGAINING MORE ENERGY. THE PT AND I WALKED TO THE DOOR AND BACK, USING A GB AND FWW. FIRE SAFETY PROTOCOLS AND PROCEDURES MAINTAINED. CALL LIGHT WITHIN REACH, BED IN THE LOWEST POSITION. WILL REPORT TO ONCOMING NURSE.
[2023-05-29 21:02] VITALS: BP 180/94
--- NOTE | 2023-05-30 04:21 | NUR ---
SHIFT SUMMARY PATIENT HAD NO ACUTE CHANGES. AXOX 4 AND INDEPENDENT WITH FWW TO BSC. DENIES CHEST PAIN, SOB, AND N/V. CBG 109. POWERGLIDE AND PICC LINE INTACT. IV ABXS INFUSED. TELE MONITOR NSR 85. HYPERTENSIVE AT SHIFT CHANGE. COOPERATIVE WITH CARE. FAMILY PRESENT AT SHIFT CHANGE. CALL LIGHT IN REACH. BED IN LOWEST POSITION. WILL CONTINUE TO MONITOR UNTIL DAY SHIFT NURSE ASSUMES CARE.
[2023-05-30 05:14] VITALS: BP 156/94
[2023-05-30 06:38] LABS: BASOPHILS ABSOLUTE AUTO 0.06 K/mm3 (0.00-0.23); BASOPHILS PERCENT AUTO 1 % (0-2); EOSINOPHILS ABSOLUTE AUTO 0.61 K/mm3 (0.00-0.68); EOSINOPHILS PERCENT AUTO 6 % (0-6); Hematocrit 23.7 % (33.0-51.0); Hemoglobin 7.3 g/dL (11.5-16.0); IMMATURE GRAN PERCENT AUTO 5 % (0-1); LYMPHOCYTES ABSOLUTE AUTO 1.11 K/mm3 (0.84-5.20); LYMPHOCYTES PERCENT AUTO 11 % (21-46); MONOCYTES ABSOLUTE AUTO 0.82 K/mm3 (0.16-1.47); MONOCYTES PERCENT AUTO 8 % (4-13); Mean Corpuscular HGB 26.4 pg (26.0-34.0); Mean Corpuscular HGB Conc 30.8 g/dL (31.5-36.5); Mean Corpuscular Volume 86 fL (80-100); NEUTROPHILS ABSOLUTE AUTO 7.05 K/mm3 (1.96-9.15); NEUTROPHILS PERCENT AUTO 70 % (41-73); Platelet Count 374 K/mm3 (150-400); RDW Coefficient Variation 15.1 % (11.7-14.2); RDW Standard Deviation 47.8 fL (35.1-46.3); Red Blood Cell Count 2.77 M/mm3 (3.80-5.20); White Blood Cell Count 10.15 K/mm3 (4.00-11.30)
[2023-05-30 06:53] LABS: Albumin, Blood 2.5 g/dL (3.4-5.0); Albumin/Globulin Ratio 0.7 (0.8-1.8); Bilirubin, Total 0.2 mg/dL (0.1-1.0); Bun/Creatinine Ratio 9.9 (12.0-20.0); Calcium, Blood 8.5 mg/dL (8.5-10.1); Creatinine, Blood 0.71 mg/dL (0.40-1.00); Globulin, Blood 3.4 g/dL (2.2-4.0); Magnesium, Blood 1.8 mg/dL (1.6-2.4); Phosphorus, Blood 2.9 mg/dL (2.5-4.9); Potassium, Blood 2.9 mmol/L (3.5-5.5); Total Protein, Blood 5.9 g/dL (6.4-8.2)
[2023-05-30 08:52] VITALS: BP 183/118
[2023-05-30 10:10] VITALS: BP 140/84
[2023-05-30] MEDS ORDERED: PANT40 PO (12:00)
[2023-05-30] MEDS ORDERED: AMOCLA875 PO (12:01)
[2023-05-30] MEDS ORDERED: LOPE2C PO (12:01)
[2023-05-30] MEDS ORDERED: VISBIOME 112.51 EACH PO (12:13)
--- NOTE | 2023-05-30 15:04 | NUR ---
DISCHARGE NOTE PT DISCHARGED TO HOME, PICKED UP BY HER . TAKEN TO THEIR VEHICLE BY WHEELCHAIR WITH THIS NURSE. PICC AND PG REMOVED BY CHARGE NURSE. SEE DOCUMENTATION. DISCHARGE INFORMATION AND EDUCATION PROVIDED. MEDICATIONS FAXED TO THE PHARMACY OF THEIR CHOICE.
== END 2023-05-30 16:20 | disposition home or self-care (01) | DRG 871 ==
LOC: ER 01:31 → PCU 05:41 → MEDS 05:41 → PCU 06:21 → ICUE 17:08 → MEDS 05-28 00:29 → ENPENDDIS 05-30 10:57 → MEDS 05-30 16:20
PROVIDERS: Emergency Medicine; Internal Medicine; ADMIT Internal Medicine
PROC: 02HV33Z Insertion of Infusion Device into Superior Vena Cava, Percutaneous Approach (ICD-10-PCS; principal; 2023-05-26)
PROC: 3E033XZ Introduction of Vasopressor into Peripheral Vein, Percutaneous Approach (ICD-10-PCS; 2023-05-26)
PROC: 0T9B70Z Drainage of Bladder with Drainage Device, Via Natural or Artificial Opening (ICD-10-PCS; 2023-05-26)
DX: A41.9 Sepsis, unspecified organism (principal); J96.01 Acute respiratory failure with hypoxia; R57.1 Hypovolemic shock; R65.21 Severe sepsis with septic shock; E87.20 Acidosis, unspecified; F11.20 Opioid dependence, uncomplicated; N17.9 Acute kidney failure, unspecified; Z68.41 Body mass index [BMI] 40.0-44.9, adult; K52.9 Noninfective gastroenteritis and colitis, unspecified; E86.0 Dehydration; E66.9 Obesity, unspecified; F41.9 Anxiety disorder, unspecified; G89.29 Other chronic pain; G47.33 Obstructive sleep apnea (adult) (pediatric); E11.65 Type 2 diabetes mellitus with hyperglycemia; E03.9 Hypothyroidism, unspecified; K56.41 Fecal impaction; M32.9 Systemic lupus erythematosus, unspecified; J44.9 Chronic obstructive pulmonary disease, unspecified; F17.210 Nicotine dependence, cigarettes, uncomplicated; E83.42 Hypomagnesemia; E83.39 Other disorders of phosphorus metabolism; F32.A Depression, unspecified; Z88.5 Allergy status to narcotic agent; Z86.73 Personal history of transient ischemic attack (TIA), and cerebral infarction without residual deficits; Z88.8 Allergy status to other drugs, medicaments and biological substances; Z79.899 Other long term (current) drug therapy; Z79.84 Long term (current) use of oral hypoglycemic drugs; Z79.890 Hormone replacement therapy; Z90.49 Acquired absence of other specified parts of digestive tract; Z98.51 Tubal ligation status; Z98.890 Other specified postprocedural states
CPT/HCPCS: 36415; 36569; 51702; 71045; 74177; 80048; 80053; 81001; 82947; 83605; 83690; 83735; 83880; 84100; 84484; 85025; 85610; 87040; 87086; 87177; 87209; 87493; 87507; 93005; 93010; 96361; 96365-59; 96375; 99285-25; A9270; C1751; J1650; J2405; J2543; J3475; J3480; J7030; J7050; J7060; J7120; Q9967

== ENCOUNTER 2025-02-07 19:40 | Emergency (ER) | payer BC ==
[~2025-02-07] VITALS: Ht 162.6 cm; Wt 113.4 kg
[~2025-02-07 19:40] MED LIST changes: +AMOCLA875 PO; +BUPRENORPHIN-N1 EAC1 SL; +BUSPIRONE HCL5 M6 PO; -EUTHYROX125 MCG PO; +FURO20 PO; +LOPE2C PO; +LYRICA PO; +POTCHL20ER PO; +PREG100 PO; +PROVERA PO; +Robaxin750 MG PO; +VANCOCIN HCL125 MG PO; +VISBIOME 112.51 EACH PO
[2025-02-07] MEDS ORDERED: Methocarbamol 500 MG Tab PO ONE (20:20)
[2025-02-07] MEDS ORDERED: Methyl Salicylate/Menth/Camph 57 GM TUBE EXT ONE (20:20)
[2025-02-07] MEDS ORDERED: Buprenorphine HCL/Naloxone HCL 2-0.5MG 1 EA SL ONE (20:20)
[2025-02-07] MEDS ORDERED: Acetaminophen 500 MG Tab PO ONE (20:20)
[2025-02-07 21:10] VITALS: BP 95/54
== END 2025-02-07 21:12 | disposition home or self-care (01) ==
LOC: ER 19:40
DX: S39.012A Strain of muscle, fascia and tendon of lower back, initial encounter (principal); J45.909 Unspecified asthma, uncomplicated; E11.22 Type 2 diabetes mellitus with diabetic chronic kidney disease; N18.30 Chronic kidney disease, stage 3 unspecified; I12.9 Hypertensive chronic kidney disease with stage 1 through stage 4 chronic kidney disease, or unspecified chronic kidney disease; Z88.5 Allergy status to narcotic agent; Z88.8 Allergy status to other drugs, medicaments and biological substances; Z79.84 Long term (current) use of oral hypoglycemic drugs; Z79.899 Other long term (current) drug therapy; Z79.891 Long term (current) use of opiate analgesic; X50.1XXA Overexertion from prolonged static or awkward postures, initial encounter
CPT/HCPCS: 99284; A9270; J0572

== ENCOUNTER → 2025-02-08 | Outpatient (CLI) | payer BC ==
[2025-02-08 17:19] LABS: Creatinine Urine 90.7 mg/dL (27.00-270.00); Protein, Urine Quantitative 15.3 mg/dL (0.0-11.9)
[2025-02-08 17:21] LABS: Microalbumin, Urine Quant. 9.59 mg/L (0.000-20.000)
== END ==
LOC: LAB 16:40 → LAB SHORT 16:40
PROVIDERS: Internal Medicine Nephrology
DX: N18.30 Chronic kidney disease, stage 3 unspecified (principal); N25.81 Secondary hyperparathyroidism of renal origin; E55.9 Vitamin D deficiency, unspecified; R76.9 Abnormal immunological finding in serum, unspecified; R94.5 Abnormal results of liver function studies; R94.6 Abnormal results of thyroid function studies
CPT/HCPCS: 82043; 82570; 84156